=== PATIENT | male | born 1960 | race Caucasian/White ===

== ENCOUNTER 2018-02-06 13:04 | Day surgery (SDC) | payer OTHER ==
[2018-02-06] MEDS ORDERED: LR 1,000 ML IV ONE (13:17)
--- NOTE | 2018-02-06 13:26 | PDANEPAE ---
ANE Review of Systems Review of Systems: ANE Physical Exam - Airway Neck exam: FROM Mallampati Score: Class 3 - Pulmonary Pulmonary: no respiratory distress - Cardiovascular Cardiovascular: regular rate and rhythym - ASA Status ASA Status: II ANE Anesthesia Plan Anesthesia Plan: general endotracheal anesthesia
[2018-02-06] MEDS ORDERED: MIDAZOLAM 2 MG/2 ML VIAL ONE (13:30)
[2018-02-06] MEDS ORDERED: METOCLOPRAMIDE 10 MG/2 ML VIAL ONE (13:30)
[2018-02-06] MEDS ORDERED: PROPOFOL 200 MG/20 ML VIAL ONE (13:30)
[2018-02-06] MEDS ORDERED: fentaNYL 250 MCG/5 ML INJ ONE (13:30)
[2018-02-06] MEDS ORDERED: DEXAMETHASONE 4 MG/ML VIAL ONE ×2 (13:30→13:31)
[2018-02-06] MEDS ORDERED: LIDOCAINE 2% 100 MG/5 ML SYR ONE (13:31)
[2018-02-06] MEDS ORDERED: ROCURONIUM 50 MG/5 ML VIAL ONE (13:31)
[2018-02-06] MEDS ORDERED: KETOROLAC 30 MG/1 ML SDV ONE (13:31)
[2018-02-06] MEDS ORDERED: BUPIVACAINE/EPI 0.5% 30 ML SDV ONE (13:33)
[2018-02-06] MEDS ORDERED: NALOXONE HCL 0.4 MG/ML INJ IVP PRN (14:32)
[2018-02-06] MEDS ORDERED: ONDANSETRON 4 MG/2 ML VIAL IVP PRN (14:32)
[2018-02-06] MEDS ORDERED: ALBUTEROL 3 ML DEYVIAL IH PRN (14:32)
[2018-02-06] MEDS ORDERED: fentaNYL 100 MCG/2 ML INJ IVP PRN (14:32)
[2018-02-06] MEDS ORDERED: MEPERIDINE 25 MG/ML SYR IVP PRN (14:32)
--- NOTE | 2018-02-06 14:33 | POSTANESTH ---
Post Anesthetic Evaluation Cardiovascular Status: Similar to Pre-Op Cond Respiratory Status: Similar to Pre-op Cond. Level of Consciousness/Mental Status: Alert and Oriented Pain Control: Adequate, Prn Tx Ordered Nausea/Vomiting Control: Adequate, Prn Tx Ordered Complications Possibly Related to Anesthesia: None Noted
[2018-02-06] MEDS ORDERED: oxyCODONE IR 5 MG TAB PO PRN (14:34)
[2018-02-06] MEDS ORDERED: ACETAMINOPHEN 500 MG TAB PO PRN (14:34)
[2018-02-06] MEDS ORDERED: HYDROCODONE/APAP 5/325 TAB PO PRN (14:34)
--- NOTE | 2018-02-06 14:38 | POSTOPPROG ---
Post Op Note Date of Operation: 02/06/18 Surgeon: Wally Lay Anesthesiologist: rolando Pre-op Diagnosis: perirectal abscess Post-op Diagnosis: same Indication: same Procedure: i +d perineal kaylin rectal abscess, suprlevator Findings: same Inf/Abcess present in the surg proc area at time of surgery?: Yes Depth: Deep Incisional (Fascial) EBL: Minimal
--- NOTE | 2018-02-06 14:50 | GOP ---
[f rep st] OPERATIVE REPORT DATE OF OPERATION: SURGEON: Wally Lay MD PREOPERATIVE DIAGNOSIS: Perirectal abscess. POSTOPERATIVE DIAGNOSIS: Perirectal abscess. PROCEDURE PERFORMED: Drainage, perirectal abscess, supralevator. FINDINGS: INDICATIONS: 57-year-old male known to me from previous complex perirectal abscesses in 2014, 2015, now presents with fevers, chills, perineal pain. DESCRIPTION OF PROCEDURE: General anesthetic, patient positioned in the stirrups. Digital rectal ex am just showed a fluctuant mass, slightly smaller than a tennis ball anteriorly in the perineum. An incision was made over this and purulence obtained. Suction was placed in this and eventually it was copiously irrigated with saline. A finger placed in the wound showed it to be 4 or 5 cm in circumfe rence. This was packed with quarter-inch iodoform gauze and a bulky gauze dressing applied. Patient tolerated the procedure well. /[id number]/MODL
[2018-02-06 15:14] VITALS: RESP 17
[2018-02-06 15:19] VITALS: PULSE 96
[2018-02-06 15:25] VITALS: TEMP 100
[2018-02-06 15:31] VITALS: O2SAT 91
[2018-02-06 15:36] VITALS: BP 132/78
== END 2018-02-06 15:45 | disposition home or self-care (01) ==
LOC: FSGY 13:04
PROVIDERS: ATTEND Surgery
PROC: 0D9P0ZZ Drainage of Rectum, Open Approach (ICD-10-PCS; principal; 2018-02-06 13:00)
DX: K61.1 Rectal abscess (principal)
CPT/HCPCS: J1100; J1885; J2001; J2250; J2704; J2765; J3010

== ENCOUNTER 2019-02-01 17:54 | Day surgery (SDC) | payer OTHER ==
[2019-02-01] MEDS ORDERED: LIDOCAINE 1% 2 ML INJ ONE (18:17)
--- NOTE | 2019-02-01 18:30 | GHP ---
[f rep st] HISTORY AND PHYSICAL DATE OF ADMISSION: 02/01/2019 CHIEF COMPLAINT: Anterior perianal pain. PRESENT ILLNESS: A 58-year-old male who has had previous I and D perirectal abscesses, last a year a go, now presents with recurrent anteriorly in the perineum. ALLERGIES: None. CURRENT MEDICATIONS: None. REVIEW OF SYSTEMS: Denies asthma, heart trouble, diabetes, etc. SOCIAL HISTORY: Nonsmoker. Alcohol: 3 drinks a week. Employed as a patient financial services coordinator. . PREVIOUS SURGERY: Ruptured appendectomy, multiple I and D perirectal abscesses. PHYSICAL EXAM: GENERAL: Modestly obese male. HEENT: Within normal limits. LUNGS: Clear. HEART: Normal S1, S2 without murmur. ABDOMEN: Soft, benign. PERINEUM: Anterior painful mass 3 to 4 cm. ASSESSMENT: Deep perirectal abscess, not particularly amenable to in-office drainage. RECOMMENDATIONS AND PLAN: Drainage under anesthesia. This will be done this evening at [facility]. Recurrence, infection, etc. risks have been explained to the patient. /[id number]/MODL
[2019-02-01] MEDS ORDERED: MIDAZOLAM 2 MG/2 ML VIAL IVP ONE (19:32)
--- NOTE | 2019-02-01 19:32 | PDANEPAE ---
ANE History of Present Illness kaylin rectal abscess, here for I+D ANE Past Medical History - Cardiovascular History Hx Hypertension: No Hx Arrhythmias: No Hx Chest Pain: No Hx Coronary Artery / Peripheral Vascular Disease: No - Pulmonary History Hx COPD: No Hx Asthma/Reactive Airway Disease: No Hx Recent Upper Respiratory Infection: No Hx Sleep Apnea: No - Endocrine History Obesity: yes, moderate ANE Review of Systems Review of Systems: - Exercise capacity Exercise capacity: >=4 METS ANE Patient History - Allergies Allergies/Adverse Reactions: No Known Drug Allergies Allergy (Verified 02/06/18 13:30) - Home Medications Home Medications: NK [No Known Home Meds] 02/06/18 [Last Taken Unknown] - NPO status NPO Status: no food or drink >8 hours NPO Since - Liquids (Date): 02/01/19 NPO Since - Liquids (Time): 11:00 NPO Since - Solids (Date): 02/01/19 NPO Since - Solids (Time): 11:00 - Anes Hx Anes Hx: no prior problems - Smoking Hx Smoking Status: Never smoked - Alcohol Use Alcohol Use: Occasionally - Family Anes Hx Family Anes Hx: none ANE Labs/Vital Signs - Vital Signs Blood Pressure: 152/95 Heart Rate: 82 Respiratory Rate: 14 O2 Sat (%): 95 Height: 187.96 cm Weight: 120.202 kg ANE Physical Exam - Airway Neck exam: FROM Mallampati Score: Class 2 Mouth exam: normal dental/mouth exam - Pulmonary Pulmonary: no respiratory distress, clear to auscultation - Cardiovascular Cardiovascular: regular rate and rhythym, no murmur, rub, or gallop - ASA Status ASA Status: II ANE Anesthesia Plan Anesthesia Plan: general endotracheal anesthesia, GA w LMA
[2019-02-01] MEDS ORDERED: fentaNYL 100 MCG/2 ML INJ ONE (19:36)
[2019-02-01] MEDS ORDERED: PROPOFOL 200 MG/20 ML VIAL ONE (19:37)
[2019-02-01] MEDS ORDERED: LIDOCAINE 2% 100 MG/5 ML SYR ONE (19:38)
[2019-02-01] MEDS ORDERED: BUPIVACAINE/EPI 0.5% 30 ML SDV ONE (19:52)
[2019-02-01] MEDS ORDERED: ACETAMINOPHEN 500 MG TAB PO PRN (20:33)
[2019-02-01] MEDS ORDERED: PROMETHAZINE HCL 25 MG/ML INJ IVP PRN (20:33)
[2019-02-01] MEDS ORDERED: HYDROmorphONE/DILAUDID 2 MG/ML INJ IVP PRN (20:33)
[2019-02-01] MEDS ORDERED: HYDROCODONE/APAP 5/325 TAB PO PRN (20:33)
[2019-02-01] MEDS ORDERED: ONDANSETRON 4 MG/2 ML VIAL IVP PRN (20:33)
[2019-02-01] MEDS ORDERED: oxyCODONE IR 5 MG TAB PO PRN (20:33)
[2019-02-01] MEDS ORDERED: fentaNYL 100 MCG/2 ML INJ IVP PRN (20:33)
[2019-02-01] MEDS ORDERED: NALOXONE HCL 0.4 MG/ML INJ IVP PRN (20:33)
--- NOTE | 2019-02-01 20:45 | POSTOPPROG ---
Post Op Note Date of Operation: 02/01/19 Surgeon: Wally Lay Pre-op Diagnosis: perirectal abscess Post-op Diagnosis: same Indication: same Procedure: drainage perirectal abscess Inf/Abcess present in the surg proc area at time of surgery?: Yes Depth: Deep Incisional (Fascial) EBL: Minimal Drains: Other
--- NOTE | 2019-02-01 20:50 | POSTANESTH ---
Post Anesthetic Evaluation Cardiovascular Status: Normal, Stable, Similar to Pre-Op Cond Respiratory Status: Normal, Stable, Similar to Pre-op Cond. Level of Consciousness/Mental Status: Can Participate in Eval, Alert and Oriented Pain Control: Adequate, Prn Tx Ordered Nausea/Vomiting Control: Adequate, Prn Tx Ordered Complications Possibly Related to Anesthesia: None Noted
--- NOTE | 2019-02-01 21:35 | GOP ---
[f rep st] OPERATIVE REPORT DATE OF OPERATION: SURGEON: Wally Lay MD ANESTHESIA: General. PREOPERATIVE DIAGNOSIS: Perirectal abscess. POSTOPERATIVE DIAGNOSIS: Perirectal abscess. PROCEDURE PERFORMED: Incision and drainage of perirectal abscess. FINDINGS: INDICATIONS: A 58-year-old male with a tender anterior perineal mass. He has had multiple previous abscesses drained. DESCRIPTION OF PROCEDURE: General anesthesia, patient positioned in stirrups. Digital rectal exam c onfirmed a golf ball size mass in the anterior perineum. Otherwise, no masses. Marcaine was infiltr ated in the midline over this mass. A scalpel used to make an incision. The hemostats poked into th e large abscess cavity. Large amounts of purulence were obtained. This area was then irrigated out with a catheter and saline until it was clear, after which a #22 Mallinckrodt catheter was placed int o the cavity and cut to an appropriate length. A bulky gauze dressing was applied. Patient tolerate d the procedure well. /[id number]/MODL
[2019-02-01 22:01] VITALS: BP 147/96
== END 2019-02-01 21:48 | disposition home or self-care (01) ==
LOC: FSGY 17:54
PROVIDERS: ATTEND Surgery
PROC: 0D9QXZZ Drainage of Anus, External Approach (ICD-10-PCS; principal; 2019-02-01 19:15)
DX: K61.1 Rectal abscess (principal)
CPT/HCPCS: J2001; J2250; J2704; J3010